=== PATIENT | female | born 1965 | race Caucasian/White ===

== ENCOUNTER 2016-11-12 01:01 | Day surgery (SDC) | payer MEDICARE, MEDICAID ==
[~2016-11-12] VITALS: Ht 170.2 cm; Wt 72.0 kg
[2016-11-12] VITALS (13 sets, daily range): BP systolic 110–156; BP diastolic 52–86; PULSE 56–76; RESP 13–23; O2SAT 93–98
[~2016-11-12 01:01] MED LIST: BUPR100T7 PO; BUPR300T52 PO; CA C1TAB83 PO; DOXE10CA PO; ESCI20TA38 PO; OXYB15TA PO; POLY17PO6 PO; QUET25TA PO
[2016-11-12] MEDS ORDERED: Vancomycin Inj 1,000 MG in IV Premix 1 EACH IV SCH (06:00)
[2016-11-12] MEDS ORDERED: Vancomycin Inj 1,000 MG in IV Premix 1 EACH IV ONE (06:45)
[2016-11-12 11:37] LABS: BASOPHILS % (AUTO) 0.4 % (0-3); EOSINOPHILS % (AUTO) 1.9 % (0-5); MONOCYTES % (AUTO) 7.3 % (4-12); Mean Corpuscular Hemoglobin 30.5 pg (27.0-35.0); Mean Corpuscular Volume 90.5 fL (81-100); NEUTROPHILS % (AUTO) 51.9 % (40-74); Platelet Count 198 bil/L (150-400)
--- NOTE | 2016-11-12 11:52 | NUR ---
[facility] admit Admitted to [facility] 3 about 1100. VSS. States chronic back and head pain, Back 12/04, Head 1-2. States takes no meds and it is tolerable. IVs started and labs sent. Procedure and recovery reviewed and verbalizes understanding. See EMR for further info and assessment. Meds sent with family. Call light given. Awaiting labor arbitrator hearing office.
[2016-11-12 11:56] LABS: INR 0.95 ratio
[2016-11-12] MEDS ORDERED: Vancomycin 1,000mg/200 mL NS IV ONE (12:07)
[2016-11-12] MEDS ORDERED: Vancomycin 1,000 mg Inj ONE (12:09)
[2016-11-12] MEDS ORDERED: Heparin 5,000 Units/500 mL NS Premix IV ONE (12:09)
[2016-11-12] MEDS ORDERED: Bupivacaine-MPF 0.5% 30 mL Inj ONE (12:10)
[2016-11-12] MEDS ORDERED: 0.9% Sodium Chloride 250 ML ONE (12:10)
[2016-11-12] MEDS ORDERED: Water for Injection 50 ML IV ONE (12:10)
[2016-11-12] MEDS ORDERED: fentaNYL-PF 50 mCg/mL 2 mL Inj ONE (13:30)
[2016-11-12] MEDS: 0.9% Sodium Chloride 1,000 ML IV SCH ×3 (15:02→18:51)
[2016-11-12] MEDS ORDERED: Ondansetron 2 mg/mL 2 mL Inj IVPUSH PRN (15:05)
[2016-11-12] MEDS: HYDROcodone-APAP 5-325 mg Tablet PO PRN ×3 (15:34→21:19)
--- NOTE | 2016-11-12 15:54 | DRSVH ---
PROCEDURE: X-RAY CHEST ONE VIEW, PORTABLE ([id number]) INDICATIONS: For new leads placed TECHNIQUE: One view of the chest was acquired. COMPARISON: None. FINDINGS: Surgical changes and devices: There is a cardiac pacemaker with dual leads in expected position. Lungs and pleura: No pleural effusions or pneumothorax. Lungs are clear. Mediastinum: Mediastinal contours appear normal. Heart size is normal. Bones and chest wall: No suspicious bony lesions. Overlying soft tissues appear unremarkable. IMPRESSION: Cardiac pacer leads in expected position. Dictated by: Lakia Miranda M.D. on 11/12/2016 at 15:51 Approved by: Lakia Miranda M.D. on 11/12/2016 at 15:52
--- NOTE | 2016-11-12 16:03 | NUR ---
Received Received from labor trainer about 1520. VSS. Dressing to LCW c/d/i. Ice pack applied. EKG and CXR done. Family notified per request. C/O 3/10 incisional pain. Vicodin 1 po given. Pt. cold and shaking, states has essential tremor. Blankets given. Continue to monitor per order.
--- NOTE | 2016-11-12 16:34 | OP ---
[address] [address] OPERATIVE REPORT PATIENT: EUNICE BEAL : 1965 MR#: [id number] ADMIT: 11/12/2016 JOB ID: [id number] DATE OF SURGERY: 11/12/2016 PREOPERATIVE DIAGNOSIS(ES): Mobitz II AV block. POSTOPERATIVE DIAGNOSIS(ES): Mobitz II AV block. PROCEDURES PERFORMED: 1. Dual-chamber pacemaker implantation. 2. Left upper extremity venogram. 3. Fluoroscopy. SURGEON: Stan Saenz MD, electrophysiology attending. JOB ESTIMATOR: Monica Vaughn. IMPLANTED DEVICES: 1. [employer] pulse generator, model PM 2272, serial #[id number]. 2. Right atrial lead [employer], LPA 1200 M, 46 cm, serial #[id number]. 3. RV lead, [employer], LPA 1200 M, 52 cm, serial #[id number]. ANESTHESIA: Bolus dosing of Versed and fentanyl were utilized for an appropriate level of sedation. INDICATION: The patient is a pleasant 51-year-old woman with Mobitz II AV block. After discussion of the risks and benefits of pacemaker implantation, she opted to proceed. PROCEDURAL DESCRIPTION: Following informed signed consent, the patient was taken to the EP laboratory in a fasting nonsedated state where she was prepped in the usual sterile fashion. The left infraclavicular region was infiltrated with 40 cc of a 50/50 mixture of bupivacaine and lidocaine. Once adequate anesthesia had been achieved, a 3 cm transverse incision was performed 2 cm below the left clavicle. Dissection was carried into the pectoralis fascia and the pocket was then fashioned using a combination of electrocautery and blunt dissection. Once adequate hemostasis had been achieved, attempts to access the left axillary vein over the first rib with a micropuncture needle were unsuccessful. A left upper extremity venogram was performed. Under venographic guidance, the vessel was ultimately cannulated twice to deploy two 0.035, 3 mm J guidewires. Over the first of these, an 8-Scottish tear-away sheath was advanced. Once the guidewire was removed, an active fixation lead was advanced to the RV outflow tract and ultimately to the RV apex. The lead was affixed in position using suction fixation screw. The lead was connected to the external analyzer and demonstrated appropriately sensed R waves, impedance, capture threshold. The lead was checked to 10 V and there was no evidence of diaphragmatic stimulation. Attention was now paid to placement of the right atrial lead. Over the other previously deployed J guidewire, another 8-Scottish tear-away sheath was advanced. Once the guidewire was removed, an active fixation lead was advanced to the right atrial appendage. It was affixed in position using associated fixation screw. The lead was connected to the external analyzer and demonstrated appropriately sensed P waves, impedance, capture threshold. The lead was checked to 10 V and there was no evidence of diaphragmatic stimulation. Once the position and redundancy of both leads had been confirmed in multiple fluoroscopic views, the leads were anchored to the prepectoralis fascia using associated anchor sleeves and two Ethibond sutures. The pocket was then copiously irrigated with antibiotic solution and the leads were connected to a generator. The generator was affixed to the floor of the pocket using 1-0 Ti-Cron suture. The incision was then closed with running layers of absorbable suture. The wound was dressed with skin adhesive and a small dressing. At the end the procedure, the needle, sponge, instrument counts were all correct. COMPLICATIONS: None. ESTIMATED BLOOD LOSS: Negligible. DEVICE MEASURED DATA: 1. Right atrial lead 2.2 mV, 400 ohms, 0.75 V at 0.4 msec. 2. RV lead, 9.2 mV, 740 ohms, 0.5 V at 0.4 msec. FINAL PROGRAM PARAMETERS: DDD 60-130 beats per minute. IMPRESSION: Successful dual-chamber pacemaker implantation. PLAN: 1. Stat portable chest x-ray. 2. PA and lateral chest x-ray in the morning. 3. . 4. Vancomycin doxycycline times seven days. 5. Wound check in one week. ATTENDING STATEMENT: Stan Saenz MD, electrophysiology attending, was present for and performed/supervised all aspects of this procedure.
--- NOTE | 2016-11-12 17:35 | NUR ---
Transfer Off bedrest at 1720. VSS. States pain improved. Dressing c/d/i. Report to Cathie Parrish RN. Transported to 3016 via bed with all belongings in no distress at 1735. Sling placed. Bedside check done.
--- NOTE | 2016-11-12 18:52 | NUR ---
Transfer Arrived to [facility] from [facility] approx 1740, A&Ox3. Sling in place on john DOUGLAS site is C/D/I
--- NOTE | 2016-11-12 22:00 | NUR ---
Pain Pt states she has incisional discomfort Given two vicodin tablets. Pt is currently resting quietly. No complaints
[2016-11-13 00:41] VITALS: BP 100/62; PULSE 72; RESP 16; O2SAT 94
[2016-11-13] MEDS: 0.9% Sodium Chloride 1,000 ML IV SCH ×2 (01:02→02:17)
--- NOTE | 2016-11-13 01:05 | NUR ---
PO fluids Pt taking in adequate PO fluids. Saline locked.
[2016-11-13 05:15] VITALS: BP 126/68; PULSE 84; RESP 20; O2SAT 98
[2016-11-13] MEDS: HYDROcodone-APAP 5-325 mg Tablet PO PRN (05:25)
[2016-11-13 05:50] VITALS: PULSE 66
[2016-11-13 08:00] VITALS: PULSE 70
[2016-11-13] MEDS ORDERED: buPROPion SR 150 mg ER12 Tablet PO SCH (08:30)
[2016-11-13] MEDS ORDERED: Tolterodine ER 4 mg ER24 Capsule PO SCH (08:30)
--- NOTE | 2016-11-13 08:38 | DRSVH ---
PROCEDURE: X-RAY CHEST, TWO VIEWS ([id number]) INDICATIONS: For new lead placement TECHNIQUE: 2 views of the chest were acquired. COMPARISON: [facility], CR, XR CHEST 1VW (PORTABLE), 11/12/2016, 15:30. FINDINGS: Surgical changes and devices: Stable positioning of dual chamber cardiac pacemaker. Lungs and pleura: Small effusions are present otherwise lungs are hyperinflated and clear. Mediastinum: Mediastinal contours are normal. Heart size is normal. Bones and chest wall: No suspicious bony abnormalities. Soft tissues appear unremarkable. IMPRESSION: Stable positioning of left cardiac pacer and small pleural effusions are present. Dictated by: Miguelito GAGNON Interpreted: Jenn Michele MD on 11/13/2016 at 8:36 Transcribed by: JOSEPH on 11/13/2016 at 8:37 Approved by: Jenn Michele M.D. on 11/13/2016 at 16:01
--- NOTE | 2016-11-13 09:31 | PCM.DIMED ---
Discharge Instructions Date of Service Nov 13, 2016 Dates of Hospitalization Discharge Diagnosis Discharge Diagnosis Mobitz II, 2nd Degree AV Block Symptomatic Bradycardia Near Syncope Diet No restrictions Activity Other (Keep incision dry one day. Do not extend left elbow high above shoulder for one month. Do not lift, push or pull more than 10 lbs with the left arm for one month.) Call your provider Fever or Chills, Bleeding, Excessive diarrhea Patient Instructions Follow-up in: 1 week Mid-level Provider (F9): Rito Merida PA-C Follow-up with Mid-level in: 6 weeks Rito Merida PA-C Nov 13, 2016 09:31
[2016-11-13] MEDS ORDERED: DOXY100C2 PO (09:50)
[2016-11-13] MEDS ORDERED: HYDR-4003 PO (09:50)
[2016-11-13 10:20] VITALS: BP 112/62; PULSE 72; RESP 16; O2SAT 96
--- NOTE | 2016-11-13 10:47 | DIS ---
[address] [address] DISCHARGE SUMMARY PATIENT: EUNICE BEAL : 1965 MR#: [id number] ADMIT: 11/12/2016 JOB ID: [id number] DIS: 11/13/2016 REASON FOR ADMISSION: Pacemaker implant. CHIEF COMPLAINT: Near syncope. BRIEF HISTORY: The patient is a pleasant 51-year-old woman who was recently found to have intermittent AV block during a stress test. She was not able to increase her ventricular rate above 70 BPM due to the occurrence of 2:1 AV block during the 1st stage of exercise. Heart block in varying degrees continued about 9 minutes into the recovery. She notes having at times been very weak and felt she would almost blackout during exercise. The slowest rates recorded at the time of the exercise tests were in the 40s. She is not taking any AV tahira blocking agents and so pacemaker implant was recommended. COURSE IN HOSPITAL: The patient was admitted to the [facility] and taken to the labeling strategist, where she received a dual-chamber cardiac pacemaker without incident. Afterwards she was taken back to the [facility] for recovery from sedation and then transferred up to the third [place] [facility] [place] telemetry monitoring and observation. She did well overnight and in the morning was ambulatory without difficulty. The pacemaker site was closed and dry. There was no hematoma. Chest x-ray showed good lead positions and no pneumothorax. Device evaluation showed excellent capture and sensing thresholds for both leads and she has been pacing 99% of the time in the ventricles. She felt well for discharge home and her only complaint was of mild tenderness at the pacemaker site. DISPOSITION: The patient was discharged home in good condition with a follow up appointment at the [facility] Cardiology office in one week. She was asked not to extend her left elbow high above her left shoulder for one month and to not lift, push or pull more than 10 pounds with the left arm for one month. She will follow a regular diet and take medications as prescribed. DISCHARGE MEDICATIONS: 1. Doxycycline 100 mg daily for one week. 2. Hydrocodone/acetaminophen 5/325 mg, one tablet q.6 hours p.r.n. pain, #14 with no refills. 3. Bupropion ER 300 mg daily. 4. Bupropion ER 100 mg every afternoon. 5. Calcium carbonate/vitamin D3 tablet one daily. 6. Doxepin 20 mg q.h.s. 7. Escitalopram oxalate 20 mg daily. 8. Oxybutynin chloride 15 mg daily. 9. Polyethylene glycol 17 g every two days. 10. Seroquel 12.5-25 mg tablets b.i.d. 11. Seroquel 75 mg q.h.s. FINAL DIAGNOSES: 1. Mobitz II second-degree AV block. 2. Symptomatic bradycardia with near syncope.
[2016-11-13] MEDS ORDERED: buPROPion SR 100 mg ER12 Tablet PO SCH (15:00)
--- NOTE | 2016-11-13 15:13 | NUR ---
DISCHARGE Pt discharged with all personal belongings. All DC instructions explained. All pt questions answered. Pt delivered to personal vehicle with daughter.
[2016-11-14] MEDS ORDERED: Polyethylene Glycol (PEG) 17 Gm Powder PO SCH (08:30)
== END 2016-11-13 12:11 | disposition home or self-care (01) ==
LOC: SOUO 01:01 → MPC 17:25 → SOUO 11-13 12:11
PROVIDERS: ATTEND Internal Medicine Cardiovascular Disease
DX: I44.1 Atrioventricular block, second degree (principal); R55 Syncope and collapse; K21.9 Gastro-esophageal reflux disease without esophagitis
CPT/HCPCS: 33208; 36415; 71010; 71020; 80048; 85025; 85610; 93005; 99152; 99153; C1769; C1785; C1892; C1898; J1644; J2250; J3010; J3370; J7030; J7050